=== PATIENT | male | born 1970 | race Caucasian/White ===

== ENCOUNTER → 2021-03-20 | Outpatient (CLI) | payer OTHER | LOC: ULTRA 07:43 | PROVIDERS: ATTEND Family Medicine | DX: R10.11 Right upper quadrant pain (principal); Q44.6 Cystic disease of liver; N28.1 Cyst of kidney, acquired ==

== ENCOUNTER → 2021-04-02 | Outpatient (CLI) | payer OTHER | LOC: NUC 08:09 | PROVIDERS: ATTEND Family Medicine | DX: K82.9 Disease of gallbladder, unspecified (principal) ==